=== PATIENT | male | born 1945 | race Caucasian/White ===

== ENCOUNTER 2020-08-29 14:49 | Emergency (ER) | payer OTHER, MEDICARE ==
[~2020-08-29 14:49] MED LIST: ANTIVERT25 MG PO; LOVASTATIN40 MG PO; PERCOCET 5-3251 EACH PO; PRINIVIL20 MG PO; VOLTAREN **OUT75 MG PO; XARELTO10 MG PO
[2020-08-29] MEDS ORDERED: ONDANSETRON ODT4 MG PO (16:33)
== END 2020-08-29 17:17 | disposition home or self-care (01) ==
LOC: FER 14:49
DX: S06.0X9A Concussion with loss of consciousness of unspecified duration, initial encounter (principal); S00.03XA Contusion of scalp, initial encounter; Z88.5 Allergy status to narcotic agent; Z23 Encounter for immunization; W55.22XA Struck by cow, initial encounter; Y92.009 Unspecified place in unspecified non-institutional (private) residence as the place of occurrence of the external cause; I10 Essential (primary) hypertension
CPT/HCPCS: 70450; 72125; 90471; 90715